=== PATIENT | female | born 1970 | race Hispanic/Latino ===

== ENCOUNTER 2022-01-03 03:21 | Emergency (ER) | payer OTHER ==
[2022-01-03 03:31] VITALS: BP 162/84
[2022-01-03 03:45] LABS: Bilirubin,Urine Negative (Negative); Blood,Urine Moderate (Negative); Color,Urine Colorless (Yellow)
[2022-01-03 03:46] LABS: Urobilinogen,Urine 0.2 mg/dL (<2.0)
[2022-01-03 03:50] LABS: Bacteria,Urine 1+ /HPF (Negative)
[2022-01-03 03:51] LABS: WBC,Urine > 182.0 /HPF (0.0-6.0)
[2022-01-03] MEDS ORDERED: NITROFURANTOIN MONOHYD/M-CRYST 100 MG CAP PO ONE (04:21)
--- NOTE | 2022-01-03 04:53 | Emergency Department Report ---
ED Female HPI - General Chief complaint: Urogenital-Female Stated complaint: uti Time Seen by Provider: 01/03/22 04:20 Source: patient Mode of arrival: Ambulatory Limitations: No Limitations - History of Present Illness Initial comments: 51 yo suspects she has an uti MD Complaint: dysuria, pelvic pain -: Gradual Radiation: non-radiating, suprapubic Severity: mild Quality: burning Consistency: intermittent Improves with: none Worsens with: urination Are you Now?: No Associated Symptoms: abdominal pain, dysuria. denies: vaginal discharge, nausea/vomiting, fever/chills, headaches, weakness - Related Data Home Medications Medication Instructions Recorded Confirmed Last Taken Hydroxyzine HCl [hydrOXYzine] 50 mg PO Q4-6H PRN 12/29/15 12/29/15 12/28/15 lisinopriL [Zestril TAB] 20 mg PO DAILY 12/29/15 12/29/15 12/28/15 Previous Rx's Medication Instructions Recorded Last Taken Type Naproxen [Naprosyn] 500 mg PO BID #20 tablet 12/29/15 Unknown Rx Prednisone [predniSONE 10 mg 10 mg PO .TAPER #1 tab.ds.pk 12/29/15 Unknown Rx (6-Day Pack, 21 Tabs)] Nitrofurantoin [place]/M-Cryst 100 mg PO Q12HR #10 capsule 01/03/22 Unknown Rx [Macrobid CAP] Allergies Allergy/AdvReac Type Severity Reaction Status Date / Time adhesive Allergy Hives Verified 12/29/15 03:29 latex Allergy Hives Verified 12/29/15 03:29 Penicillins Allergy Anaphylaxis Verified 12/29/15 03:28 ED Review of Systems ROS: Stated complaint: uti Other details as noted in HPI Comment: All other systems reviewed and negative ED Past Medical Hx - Past Medical History Hx Hypertension: Yes Hx Psychiatric Treatment: Yes (anxiety) - Social History Smoking Status: Current Every Day Smoker Substance Use Type: None - Medications Home Medications: Home Medications Medication Instructions Recorded Confirmed Last Taken Type Hydroxyzine HCl [hydrOXYzine] 50 mg PO Q4-6H PRN 12/29/15 12/29/15 12/28/15 History Naproxen [Naprosyn] 500 mg PO BID #20 tablet 12/29/15 Unknown Rx Prednisone [predniSONE 10 mg 10 mg PO .TAPER #1 tab.ds.pk 12/29/15 Unknown Rx (6-Day Pack, 21 Tabs)] lisinopriL [Zestril TAB] 20 mg PO DAILY 12/29/15 12/29/15 12/28/15 History Nitrofurantoin [place]/M-Cryst 100 mg PO Q12HR #10 capsule 01/03/22 Unknown Rx [Macrobid CAP] ED Physical Exam - General Limitations: No Limitations - Other Other exam information: General: No acute distress Head: Atraumatic Eyes: normal appearance ENT: Moist mucous membranes Neck: Normal appearance, no midline tenderness Chest: Clear to auscultation bilaterally CV: Regular rate and rhythm Abdomen: Soft, normal bowel sounds, nontender, nondistended, no rebound or guarding Back: Normal inspection, no CVA tenderness Extremity: Normal inspection, full range of motion Neuro: Alert O x 3, no facial asymmetry, speech clear, no gross motor sensory de ficit Psych: Appropriate behavior Skin: No rash ED Course Vital Signs 01/03/22 03:30 Temperature 98.3 F Pulse Rate 86 Respiratory 18 Rate Blood Pressure 162/84 O2 Sat by Pulse 98 Oximetry ED Medical Decision Making - Medical Decision Making 51-year-old female presents to the hospital with symptoms of UTI. Urine positive for infection. Macrobid provided. No signs of sepsis or significant pain/discomfort in the ED. Patient is scheduled to follow-up with her PMD on January 06 Critical Care Time: No Critical care attestation.: If time is entered above; I have spent that time in minutes in the direct care of this critically ill patient, excluding procedure time. ED Disposition Clinical Impression: UTI (urinary tract infection) Disposition: 01 HOME / SELF CARE / HOMELESS Is pt being admited?: No Does the pt Need Aspirin: No Condition: Stable Instructions: Urinary Tract Infection, Adult Additional Instructions: Take the medication as prescribed. Follow-up with your doctor or doctor/clinic provided. Return if symptoms worsen as indicated by your discharge instructions. Prescriptions: Nitrofurantoin [place]/M-Cryst [Macrobid CAP] 100 mg PO Q12HR #10 capsule Referrals: Your primary care doctor, [Other] - 01/06/22 (Follow-up as scheduled) Time of Disposition: 04:37
== END 2022-01-03 05:22 | disposition home or self-care (01) ==
LOC: ED 03:21
DX: N39.0 Urinary tract infection, site not specified (principal); I10 Essential (primary) hypertension; F41.9 Anxiety disorder, unspecified; F17.200 Nicotine dependence, unspecified, uncomplicated; Z88.0 Allergy status to penicillin; Z91.040 Latex allergy status; Z91.09 Other allergy status, other than to drugs and biological substances; Z79.899 Other long term (current) drug therapy
CPT/HCPCS: 81001; 99283